=== PATIENT | female | born 1975 | race Hispanic/Latino ===

== ENCOUNTER → 2023-06-28 19:08 | Outpatient (REF) | payer OTHER, SELFPAY | LOC: CLINIC 19:08 | PROVIDERS: ATTENDING PHYSICIAN Nurse Practitioner Adult Health | DX: M79.672 Pain in left foot (principal) | CPT/HCPCS: 73630 ==

== ENCOUNTER → 2023-09-22 07:58 | Outpatient (REF) | payer OTHER, SELFPAY ==
[2023-09-22 08:38] LABS: Hematocrit 38.9 % (37.0-47.0); Hemoglobin 12.5 g/dL (12.0-16.0); Mean Corp Hgb Conc. 32.1 g/dL (33.0-37.0); Mean Corpuscular Hgb 26.9 pg (27.0-31.0); Mean Corpuscular Volume 83.7 fL (81.0-99.0); Mean Platelet Volume 10.2 fL (7.4-10.4); Platelet Count 232 10^3/uL (130-400); Red Blood Cell Count 4.65 10^6/uL (4.20-5.40); White Blood Cell Count 7.3 10^3/uL (4.8-10.8)
[2023-09-22 09:15] LABS: HDL Cholesterol 41 mg/dl; LDL Cholesterol, Calculated 102 mg/dl; Total Cholesterol 178 mg/dl (50-199); Triglyceride 178 mg/dl (10-149); Very Low Density Lipoprotein 35 mg/dl (0-30)
[2023-09-22 09:57] LABS: Glycohemoglobin (HgbA1c) 5.8 % (4.0-5.6)
[2023-09-22 10:29] LABS: Vitamin D, 25-OH*** 29.4 ng/mL (30-80)
== END ==
LOC: REG 07:58
PROVIDERS: ATTENDING PHYSICIAN Nurse Practitioner Adult Health
DX: R73.03 Prediabetes (principal); E55.9 Vitamin D deficiency, unspecified; D50.9 Iron deficiency anemia, unspecified
CPT/HCPCS: 36415; 80061; 82306; 83036; 85027

== ENCOUNTER → 2024-06-17 13:39 | Outpatient (REF) | payer OTHER, SELFPAY | LOC: WDC 13:39 | PROVIDERS: ATTENDING PHYSICIAN Nurse Practitioner Adult Health | DX: Z12.31 Encounter for screening mammogram for malignant neoplasm of breast (principal) | CPT/HCPCS: 77063; 77067 ==

== ENCOUNTER → 2024-08-02 09:47 | Outpatient (REF) | payer OTHER, SELFPAY ==
[2024-08-04 22:05] LABS: H. pylori Breath Test Negative (Negative)
== END ==
LOC: CLINIC 09:47
PROVIDERS: ATTENDING PHYSICIAN Nurse Practitioner Adult Health
DX: R10.13 Epigastric pain (principal)
CPT/HCPCS: 83013

== ENCOUNTER → 2024-09-05 07:26 | Outpatient (REF) | payer OTHER, SELFPAY ==
[2024-09-05 08:08] LABS: % Basophils 0.4 % (0-2); % Eosinophils 2.2 % (0-6); % Immature Granulocytes 0.1 % (0-0.5); % Lymphocytes 27.5 % (20.5-51.1); % Monocytes 5.4 % (1.7-9.3); % Neutrophils 64.4 % (42.2-75.2); Absolute Eosinophils 0.2 10^3/uL (0-0.7); Absolute Lymphocytes 1.9 10^3/uL (1.2-3.4); Absolute Monocytes 0.4 10^3/uL (0.1-0.6); Absolute Neutrophils 4.4 10^3/uL (1.4-6.5); Hematocrit 37.3 % (37.0-47.0); Hemoglobin 13.1 g/dL (12.0-16.0); Mean Corp Hgb Conc. 35.1 g/dL (33.0-37.0); Mean Corpuscular Hgb 28.6 pg (27.0-31.0); Mean Corpuscular Volume 81.4 fL (81.0-99.0); Nucleated Red Blood Cells % 0 %; Platelet Count 245 10^3/uL (130-400); Red Blood Cell Count 4.58 10^6/uL (4.20-5.40); Red Cell Dist. Width 12.7 % (11.5-14.5); White Blood Cell Count 6.9 10^3/uL (4.8-10.8)
[2024-09-05 08:38] LABS: HDL Cholesterol 43 mg/dl; Triglyceride 176 mg/dl (10-149); Very Low Density Lipoprotein 35 mg/dl (0-30)
[2024-09-05 08:47] LABS: Glycohemoglobin (HgbA1c) 5.6 % (4.0-5.6)
[2024-09-05 09:09] LABS: TSH Reflex To Free T4 1.96 uIU/ml (0.47-4.68)
[2024-09-05 10:23] LABS: LDL Cholesterol, Calculated 111 mg/dl; Total Cholesterol 189 mg/dl (50-199)
== END ==
LOC: CLINIC 07:26
PROVIDERS: ATTENDING PHYSICIAN Nurse Practitioner Adult Health
DX: Z00.00 Encounter for general adult medical examination without abnormal findings (principal); R73.03 Prediabetes
CPT/HCPCS: 36415; 80061; 83036; 84443; 85025

== ENCOUNTER → 2024-09-07 08:39 | Outpatient (REF) | payer OTHER, SELFPAY ==
[2024-09-09 17:47] LABS: FIT-Fecal Occult Blood Interp Negative
== END ==
LOC: CLINIC 08:39
PROVIDERS: ATTENDING PHYSICIAN Nurse Practitioner Adult Health
DX: Z00.00 Encounter for general adult medical examination without abnormal findings (principal); Z12.11 Encounter for screening for malignant neoplasm of colon
CPT/HCPCS: 83520

== ENCOUNTER → 2024-11-06 07:21 | Outpatient (REF) | payer OTHER, SELFPAY ==
[2024-11-06 09:07] LABS: Vitamin D, 25-OH*** 41.6 ng/mL (30-80)
== END ==
LOC: CLINIC 07:21
PROVIDERS: ATTENDING PHYSICIAN Nurse Practitioner Adult Health
DX: E55.9 Vitamin D deficiency, unspecified (principal)
CPT/HCPCS: 36415; 82306